=== PATIENT | female | born 1985 | race Caucasian/White ===

== ENCOUNTER 2025-05-03 09:37 | Outpatient (CLI) | payer OTHER, SELFPAY ==
--- NOTE | ~2025-05-03 | MR_ITS ---
MRI of the abdomen: Clinical indication: Abnormal findings on diagnostic imaging. Technique: Coronal SSFSE ARC, WATER:coronal LAVA-FLEX, Coronal 2D FIESTA FatSat, Axial SSFSE BH ARC, Axial 3D DualEcho BH, Axial SSFSE-IR, Axial DWI b=500, Axial 2D FIESTA FatSat, pre and dynamic postco ntrast Axial LAVA ARC, postcontrast Coronal In and Opposed phase LAVA FLEX. Following intravenous adm inistration of 20 cc MultiHance gadolinium, T1-weighted fat-sat imaging was performed in the axial an d coronal planes. Findings: Gallbladder absent. The common bile duct is unremarkable. No filling defects are seen withi n the CBD. No evidence of intrahepatic biliary ductal dilatation. The pancreatic duct is normal in si ze. Probable mild signal loss of the liver on out of phase images relative to in phase images, compatible diffuse fatty infiltration. Spleen, pancreas, left adrenal gland,, kidneys appear normal. Probable 1 1 mm right adrenal nodule with loss of signal on out of phase images relative to in phase images, com patible with benign adenoma. The aorta and the paraaortic regions appear normal. No abnormal postcontrast enhancement. Impression: Diffuse fatty infiltration of liver. 11 mm right adrenal adenoma. Reviewed, dictated and finalized at location M. Impression: Diffuse fatty infiltration of liver. 11 mm right adrenal adenoma.
--- OUTSIDE RECORDS SUMMARY | 2025-05-03 09:47 | XMS_ITS | Clinical Summary ---
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
--- OUTSIDE RECORDS SUMMARY | 2025-05-03 09:47 | XMS_ITS | Clinical Summary ---
Author Organization [facility] Address [address] [place] [address] Care Team Providers Care Student Loan Counselor Name Role Phone Kinjal Newby MD Primary Care Provider [phone] Sissy Berkowitz PA-C Unavailable [phone] [facility],non-owned Affiliates and Associated Physician Practices is amultiple site organization consisting of ambulatory clinics and hospital sitesin [place], [place], [place] and [place]. This disclosure is being madepursuant to the Care Everywhere program and may not contain all information available regarding this patient. Last updated 18.[facility] Allergies No known active allergies Medications * Be aware that medications may not be up to date on this document. Alwaysverify current medications with the patient. fluticasone propionate (FLONASE) 50 MCG/ACT nasal spray Constantine 1 Constantine into each nostril 2 times daily 1 Bottle 1 10/30/19 17 Active atorvastatin (Lipitor) 40 MG tablet Take 1 (one) tablet by mouth at bedtime Active vitamin D, ergocalciferol, (Drisdol) 1.25 MG (69360 UT) capsule Take 1 (one) capsule by mouth every 7 days Active Blood Glucose Monitoring Suppl (ONE TOUCH ULTRA 2) w/Device KIT USE DIRECTED TO TEST BLOOD SUGAR DAILY. 01/25/20 24 Active TRUEplus 5-Bevel Pen Bapchule 32G X 4 MM MISC as directed 11/02/19 24 Active blood glucose (ReliOn True Metrix Test Strips) test stripIndications :Type 2 diabetes mellitus without complication, without long-term current use of insulin ([facility]),Class 3 severe obesity due to excess calories without serious comorbidity with body mass index (BMI) of 50.0 to 59.9 in adult ([facility]) Use 1 (one) strip as directed 300 strip 3 11/25/19 Active lancetsIndicatio ns:Type 2 diabetes mellitus without complication, without long-term current use of insulin ([facility]),Class 3 severe obesity due to excess calories without serious comorbidity with body mass index (BMI) of 50.0 to 59.9 in adult ([facility]) Use 1 (one) Each once daily 100 Each 11/25/19 Active Additional Information Patient not taking.Reported on 04/14/2025 Semaglutide (2 MG/DOSE) 8 MG/3ML Subcutaneous Solution Pen-injector (Ozempic (2 MG/DOSE))Indicat ions:Type 2 diabetes mellitus without complication, without long-term current use of insulin ([facility]) Inject 2 (two) mg subcutaneously every 7 days (once a week) 9 mL 3 02/20/20 Active potassium citrate (Urocit K 10) 10 MEQ (1080 MG) tablet Take 1 (one) tablet by mouth 3 times daily with meals 180 tablet 11 09/30/20 24 025 Discontin ued(List Clean-Up) Active Problems Problem Noted Date Diagnosed Date Type 2 diabetes mellitus wit hout complication, without long-term current use of insulin 04/28/2024 Obesity due to excess calories 04/28/2024 Kidney stones 03/24/2024 Hydronephrosis with urinary obstruction due to renal calculus 12/08/2023 Encounters Date Type Department Care Team Description 04/14/2025 1:00 PM CDT Office Visit [facility] - Urology [address] [place] [address] [address] [place] [address] Fred Hagen MD Kidney stones (Primary Dx); Class 3 severe obesity due to excess calories without serious comorbidity with body mass index (BMI) of 50.0 to 59.9 in adult ([facility]) 04/14/2025 Travel 04/07/2025 3:07 PM CDT - 04/07/2025 11:59 PM CDT Hospital Encounter [facility] Imaging Services - Ultrasound [address] [place] [address] Fred Hagen MD Discharge Disposition: Home or Self Care 03/13/2025 Telephone [facility] - Endocrinology [address] [place] [address] Rebecca Camacho, RN Follow-up 03/12/2025 Orders Only [facility] - Endocrinology [address] [place] [address] Rebecca Camacho RN 02/19/2025 Orders Only [facility] - Endocrinology [address] [place] [phone] Anni Gallagher, DO Type 2 diabetes mellitus without complication, without long-term current use of insulin ([facility]) 02/02/2025 Refill [facility] - Endocrinology [address] [place] [phone] Chyna Brooks MD MEDICATION REFILL from Last 3 Months Immunizations Immunization Administration Dates Next Due INFLUENZA VACCINE, QUADR. (F LUZONE; FLULAVAL; FLUARIX; AFLURIA QUADRIVALENT; 6MO+), 0.5 ML (IIV4) 12/09/2023(Deferred: Patient Refused) Family History Medical History Relation Name Comments Cancer - Breast Maternal Grandmother Cancer - Breast Paternal Grandmother Relation Name Status Comments Maternal Grandmother Paternal Grandmother Social History Tobacco Use Types Packs/Day Years Used Date Smoking Tobacco: Every Day Cigarettes Smokeless Tobacco: Never Tobacco Cessation:Ready to Q uit: Not Asked; Counseling Given: Not Answered Alcohol Use Standard Drinks/Week Comments Never 0 (1 standard drink = 0.6 oz pur e alcohol) AUDIT-C Answer Date Recorded Q1: How often do you have a drink containing alcohol? Never 01/04/2024 Q2: How many drinks containi ng alcohol do you have on a typical day when you are drinking? Patient does not drink Q3: How often do you have si x or more drinks on one occasion? Never 01/04/2024 Overall Financial Resource Strain (CARDIA) Answe r Date Recorded How hard is it for you to pa y for the very basics like food, housing, medical care, and heating? Not hard at all 12/08/2023 PHQ-2 Answer Date Recorded Patient Health Questionnaire-2 Score 0 04/14/2025 [facility] Occupat ional Health - Occupational Stress Questionnaire Answer Date Recorded Do you feel stress - tense, restless, nervous, or anxious, or unable to sleep at night because your mind is troubled all the time - these days? Not at all 12/08/2023 Hunger Vital Sign Answer Date Recorded Within the past 12 months, y ou worried that your food would run out before you got the money to buy more. Never true 12/08/19 24 Within the past 12 months, t he food you bought just didn't last and you didn't have money to get more. Never true 12/08/2023 PRAPARE - Transportation Answer Date Re corded In the past 12 months, has l ack of transportation kept you from medical appointments or from getting medications? No 06/2024 In the past 12 months, has l ack of transportation kept you from meetings, work, or from getting things needed for daily living? No 12/08/2023 Housing Stability Vital Sign Answer Chris e Recorded In the last 12 months, was t here a time when you were not able to pay the mortgage or rent on time? No 12/08/2023 In the last 12 months, how many places have you lived? 1 12/08/2023 In the last 12 months, was t here a time when you did not have a steady place to sleep or slept in a penitentiary (including now)? 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 Gender Identity Female 03/04/2024 1:38 PM CDT Sexual Orientation Straight 03/04/2024 1: 38 PM CDT Last Filed Vital Signs Vital Sign Reading Time Taken Comments Blood Pressure 105/72 04/14/2025 1:11 PM CDT Pulse 97 04/14/2025 1:11 PM CDT Temperature 36.8 C (98.3 F) 04/14/2025 1:11 PM CDT Respiratory Rate 17 04/14/2025 1:11 PM CDT Oxygen Saturation 97% 04/14/2025 1:11 PM CDT Inhaled Oxygen Concentration - - Weight 120.2 kg (265 lb) 04/14/2025 1:11 PM CDT Height 154.9 cm (5' 1) 04/14/2025 1:11 PM CDT Body Mass Index 50.07 04/14/2025 1:11 PM CDT Plan of Treatment Upcoming Encounters Date Type Department Care Team (Late st Contact Info) Description 05/25/2025 10:40 AM CDT Office [facility] End[facility]inology [address] [place] [address], [place] [phone] Chyna Brooks MD [address] [place] [address] [place] [phone] 04/12/2026 2:30 PM CDT Office Visit [facility] - Urology [address] [facility] [address] [place] [address] Fred Hagen MD [address] [place] [address] Health Maintenance Due Date Last Done Comments HIV SCREENING 1999 HEPATITIS C SCREENING 11/09/2002 DTAP/TDAP/TD VACCINES (1 - Tdap) 2003 HEPATITIS B VACCINE (1 of 3 - 19+ 3-dose series) 2003 PNEUMOCOCCAL VACCINE (1 of 2 - PCV) 2003 HPV VACCINE (1 - 3-dose SCDM series) 2011 DIABETES RETINOPATHY SCREENING 04/28/2024 DIABETES-FOOT EXAM WITH MONOFILAMENT 04/28/2024 COVID-19 VACCINE ( - season) 2024 DIABETES - URINE PROTEIN SCREENING 10/01/2024 INFLUENZA VACCINE (#1) 2025 DIABETES-HGB A1C 09/15/2025 03/16/2025, , 04/28/2024 DIABETES-SERUM CREATININE 03/16/20262024, 03/17/2024, 12/09/2023, Additional history exists PAP SMEAR 05/16/2026 05/16/2023, 05/16/2023 MAMMOGRAM 12/29/2026 12/29/2024 ZOSTER VACCINE (1 of 2) 2034 DEPRESSION SCREENING Completed 04/14/2025 HIB VACCINE Aged Out No longer eligi ble based on patient's age to complete this topic MENINGOCOCCAL (Group B) VACCINE SHARED DECISION-MAKING Aged Out No longer eligible based on patient's age to complete this topic MENINGOCOCCAL GROUPS A/C/Y/W VACCINE Aged Out No longer eligible based on patient's age to complete this topic Medical Devices Implanted Type Area Vp Organizational Development Device Identifier Shelf Expiration Date Model / Serial / Lot Stent Uret 6fr 24cm Sft Tria Implanted:Qty: 1 on 12/09/2023 by Fred Hagen MD at [facility] [employer] [facility] 01/18/2026 [id number] / / [id number] Stent Uret 6fr 24cm Sft Tria Implanted:Qty: 1 on 12/09/2023 by Fred Hagen MD at [facility] [employer] [facility] 08/22/2026 [id number] / / [id number] Stent Uret 6fr 24cm Sft Tria Implanted:Qty: 2 on 01/04/2024 by Fred Hagen MD at [facility] [employer] 08/01/2026 [id number] / / [id number] Description:bilateral Procedures Procedure Name Priority Date/Time Associated Diagnosis Comments US RETROPERITONEAL COMPLETE Routine 04/07/2025 3:35 PM CDT Kidney stones LITHOLINK 24HR URINE PANEL QUANT (LC DIRECT SHIP) Routine 03/07/2025 9:00 AM CDT Kidney stones MAMMO BILAT SCREENING W LEONCIO Routine 12/29/2024 10:09 AM CDT Visit for screening mammogram HEMOGLOBIN A1C - POINT OF CARE (AMB) [facility] Routine 11/25/2024 11:07 AM 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 There is no evidence of echogenic renal stones, hydronephrosis or medical renal disease. 2.Bilateral ureteral jets are visible. > Interpreting Provider: Tommy Suarez MD on 04/07/2025 9:56 PM Narrative 04/07/2025 9:56 PM CDT PROCEDURE: US RETROPERITONEAL COMPLETE DATE/TIME OF EXAM: 04/07/2025 3:35 PM CLINICAL INFORMATION: None relevant/not provided if blank. Indication: N20.0: Kidney stones US RETROPERITONEAL COMPLETE, GRAYSCALE AND COLOR DOPPLER IMAGING. HISTORY: N20.0: Kidney stones COMPARISON: Renal ultrasound, 03/24/2024 FINDINGS: The kidneys are normal in size, contour, location and orientation. The renal cortices are normal in thickness and echotexture. There are no hydronephrosis, echogenic renal stones, cysts or solid masses in either kidney. The urinary bladder is almost empty with normal wall thickness, and without visible masses. The color Doppler images demonstrate the bilateral ureteral jets Specific measurements are as follows: Right kidney: 11.3 x 4.3 x 4.7 cm Right renal cortex: 14 mm Left kidney: 12.1 x 5.3 x 4.1 cm Left renal cortex: 13 mm Procedure Note Tommy Suarez MD - 04/07/2025 PROCEDURE: US RETROPERITONEAL COMPLETE DATE/TIME OF EXAM: 04/07/2025 3:35 PM CLINICAL INFORMATION: None relevant/not provided if blank. Indication: N20.0: Kidney stones US RETROPERITONEAL COMPLETE, GRAYSCALE AND COLOR DOPPLER IMAGING. HISTORY: N20.0: Kidney stones COMPARISON: Renal ultrasound, 03/24/2024 FINDINGS: The kidneys are normal in size, contour, location and orientation. The renal cortices are normal in thickness and echotexture. There are no hydronephrosis, echogenic renal stones, cysts or solid masses in either kidney. The urinary bladder is almost empty with normal wall thickness, andwithout visible masses. The color Doppler images demonstrate the bilateralureteral jets Specific measurements are as follows: Right kidney: 11.3 x 4.3 x 4.7 cm Right renal cortex: 14 mm Left kidney: 12.1 x 5.3 x 4.1 cm Left renal cortex: 13 mm IMPRESSION: 1.Within normal limits. There is no evidence of echogenic renal stones, hydronephrosis or medical renal disease. 2.Bilateral ureteral jets are visible. > Interpreting Provider: Tommy Suarez MD on 04/07/2025 9:56 PM us Fred Hagen MD US ORDERABLES Final Res ult * (ABNORMAL) LITHOLINK 24HR URINE PANEL QUANT (LC DIRECT SHIP) (03/07/2025 9:00 AM CDT) Cystine Urine Qualitative CANCELED [facility] INSURANCE BILL Comment: Test not performed. Previous test results on file. Result canceled by the ancillary. Volume Urine (Preservative) 1,680 500 - 4,000 mL/24 hr [facility] INSURANCE BILL Calcium Oxalate Saturation 5.34(L) 6.00 - 10.00 [facility] INSURANCE BILL Calcium Urine 116 <200 mg/24 hr [facility] INSURANCE BILL Oxalate Urine 38 20 - 40 mg/24 hr [facility] INSURANCE BILL Citrate Urine 707 >550 mg/24 hr [facility] INSURANCE BILL Calcium Phosphate Saturation 1.48 0.50 - 2.00 [facility] INSURANCE BILL pH Urine 24 Hour 6.501(H) 5.800 - 6.200 [facility] INSURANCE BILL Uric Acid Saturation 0.39 <1.00 [facility] INSURANCE BILL Uric Acid Urine 897(H) <750 mg/24 hr [facility] INSURANCE BILL Sodium Urine 173(H) 50 - 150 mmol/24 hr [facility] INSURANCE BILL Potassium 24 Hour Urine 58 20 - 100 mmol/24 hr [facility] INSURANCE BILL Magnesium Urine 45 30 - 120 mg/24 hr [facility] INSURANCE BILL Phosphorus Urine 1,085 600 - 1,200 mg/24 hr [facility] INSURANCE BILL Ammonium Urine 37 15 - 60 mmol/24 hr [facility] INSURANCE BILL Chloride mmol/24 Hour Urine 149 70 - 250 mmol/24 hr [facility] INSURANCE BILL Sulfate Urine 6(L) 20 - 80 meq/24 hr [facility] INSURANCE BILL Urea Nitrogen 24 Hour Urine 10.04 6.00 - 14.00 g/24 hr [facility] INSURANCE BILL Protein Catabolic Rate 0.7(L) 0.8 - 1.4 g/kg/24 hr [facility] INSURANCE BILL Creatinine Urine 1,587 Not Applic. mg/24 hr [facility] INSURANCE BILL Comment: Note the excessive variation in creatinine excretion, suggesting a discrepancy in the collection process. The urine creatinine result was verified by repeat analysis. Creatinine/Kg Body Weight 12.6 8.7 - 20.3 mg/24 hr/kg [facility] INSURANCE BILL Calcium/Kg Body Weight 0.9 <4.0 mg/24 hr/kg [facility] INSURANCE BILL Calcium/Creatini ne Ratio Urine 73 51 - 262 mg/g creat [facility] INSURANCE BILL Comment Litholink Note [facility] INSURANCE BILL Urine TIMED URINE SPECIMEN / Unknown 03/07/2025 9:00 AM CDT 03/09/2025 Narrative [facility] INSURANCE BILL - 03/13/2025 6:09 AM CDT Performed at: [address] [place] [id number] Gear Repairer: Nando Bowman PhD, Phone: [phone] us Fred Hagen MD LAB - URINE CHEMISTRY ORD ERABLES Edited Result - Final [facility] INSURANCE BILL [address] [place] [address] * Mammo Bilat Screening W Leoncio (12/29/2024 10:09 AM CDT) Anatomical Region Laterality Modality Breast Bilateral Mammography 12/29/2024 1:24 PM CDT Impressions 12/29/2024 1:27 PM CDT IMPRESSION: Prominent right axillary lymph node. Recommend diagnostic right axillary ultrasound. OVERALL FINAL ASSESSMENT: BI-RADS Category 0: Incomplete - Need Additional Imaging Evaluation. > Interpreting Provider: Pa Lewis MD on 12/29/2024 1:27 PM Narrative 12/29/2024 1:27 PM CDT EXAMINATION: BILATERAL DIGITAL SCREENING MAMMOGRAM AND BILATERAL BREAST TOMOSYNTHESIS HISTORY: Screening. COMPARISON: Baseline TECHNIQUE: BILATERAL digital breast tomosynthesis (DBT) and synthetic 2D digital mammogram images were obtained (bilateral craniocaudal and mediolateral oblique projections) including computer aided detection (CAD.) BREAST PARENCHYMAL COMPOSITION:Category B: There are scattered areas of fibroglandular density. MAMMOGRAM FINDINGS: There is no suspicious finding in either breast. There is a prominent right axillary lymph node. 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 73m2 [facility] BUN/Creatinine Ratio SEE NOTE: 6 - 22 (calc) [facility] Comment: Not Reported: BUN and Creatinine are within reference range. Sodium 140 135 - 146 mmol/L [facility] Potassium 3.9 3.5 - 5.3 mmol/L [facility] Chloride 107 98 - 110 mmol/L [facility] CO2 26 20 - 32 mmol/L [facility] Calcium 8.7 8.6 - 10.2 mg/dL [facility] Comment: REPORT COMMENT: FASTING:NO Test Performed at: [email or web address] [id number] [id number] KALIE SAEED MD 03/17/2024 3:01 PM CDT 03/17/2024 3:01 PM CDT us Fred Hagen MD LAB - CHEMISTRY ORDERABLE S Final Result [facility] [id number] [place] [address] from Last 3 Months or Most Recently Relevant to Health Maintenance Insurance [facility] [place] [address] Advance Directives * Full Code (Latest Code Status on File) Date Activated Date Inactivated Comments 12/08/2023 11:25 PM 12/11/2023 5:39 PM * Full Code Date Activated Date Inactivated Comments 12/08/2023 11:25 PM 12/08/2023 11:25 PM Care Teams Student Loan Counselor Relationship Specialty Start Date End Date Kinjal Newby MD [address] [place] [phone] PCP - General Emergency Medicine 12/08/23 Sissy Berkowitz PA-C [address] [place] [phone] Physician Dental Aide 12/08/23
== END 2025-05-03 09:38 | disposition home or self-care (01) ==
LOC: ANHIMG 09:45
PROVIDERS: PCP Emergency Medicine; Visit Provider Emergency Medicine
DX: R93.89 Abnormal findings on diagnostic imaging of other specified body structures (principal); D35.01 Benign neoplasm of right adrenal gland; K76.0 Fatty (change of) liver, not elsewhere classified
CPT/HCPCS: 74183; A9577

== ENCOUNTER 2025-05-18 10:58 | Outpatient (CLI) | payer OTHER, SELFPAY ==
--- NOTE | 2025-05-18 11:30 | ECG_ITS ---
Test Date: 2025-05-18 11:23:04 Measurements Intervals Jackson Rate: 80 P: 50 UT: 205 QRS: 35 QRSD: 94 T: 16 QT: 358 QTc: 413 Interpretive Statements SINUS RHYTHM LOW QRS VOLTAGE IN PRECORDIAL LEADS BORDERLINE T WAVE ABNORMALITY- ANTEROLAT/INF LEADS BASELINE ARTIFACT- I, II, III, AVR, AVL, AVF, V4-V6 BORDERLINE ECG No previous ECG available for comparison Electronically Signed On 05-18-2025 11:28:34 CDT by Javier العراقي D.O.
--- OUTSIDE RECORDS SUMMARY | 2025-05-18 12:17 | XMS_ITS | Clinical Summary ---
Author Organization [facility] Address [address] [place] [address] Care Team Providers Care Car Sales Consultant Name Role Phone Kinjal Newby MD Primary Care Provider [phone] Sissy Berkowitz PA-C Unavailable [phone] Source Comments [facility],non-owned Affiliates and Associated Physician Practices is amultiple site organization consisting of ambulatory clinics and hospital sitesin [place], [place], [place] and [place]. This disclosure is being madepursuant to the Care Everywhere program and may not contain all information available regarding this patient. Last updated 18.[facility] Allergies No known active allergies Medications * Be aware that medications may not be up to date on this document. Alwaysverify current medications with the patient. fluticasone propionate (FLONASE) 50 MCG/ACT nasal spray Wheeler 1 Wheeler into each nostril 2 times daily 1 Bottle 1 10/30/19 17 Active atorvastatin (Lipitor) 40 MG tablet Take 1 (one) tablet by mouth at bedtime Active vitamin D, ergocalciferol, (Drisdol) 1.25 MG (59539 UT) capsule Take 1 (one) capsule by mouth every 7 days Active Blood Glucose Monitoring Suppl (ONE TOUCH ULTRA 2) w/Device KIT USE DIRECTED TO TEST BLOOD SUGAR DAILY. 01/25/20 24 Active TRUEplus 5-Bevel [place] 32G X 4 MM MISC as directed 11/02/19 24 Active blood glucose (ReliOn True Metrix Test Strips) test stripIndications :Type 2 diabetes mellitus without complication, without long-term current use of insulin ([facility]),Class 3 severe obesity due to excess calories without serious comorbidity with body mass index (BMI) of 50.0 to 59.9 in adult ([facility]) Use 1 (one) strip as directed 300 strip 3 11/25/19 Active lancetsIndicatio ns:Type 2 diabetes mellitus without complication, without long-term current use of insulin ([facility]),Class 3 severe obesity due to excess calories without serious comorbidity with body mass index (BMI) of 50.0 to 59.9 in adult ([facility]) Use 1 (one) Each once daily 100 Each 11/25/19 Active Additional Information Patient not taking.Reported on 04/14/2025 Semaglutide (2 MG/DOSE) 8 MG/3ML Subcutaneous Solution Pen-injector (Ozempic (2 MG/DOSE))Indicat ions:Type 2 diabetes mellitus without complication, without long-term current use of insulin ([facility]) Inject 2 (two) mg subcutaneously every 7 days (once a week) 9 mL 3 02/20/20 Active Active Problems Problem Noted Date Diagnosed Date Type 2 diabetes mellitus wit hout complication, without long-term current use of insulin 04/28/2024 Obesity due to excess calories 04/28/2024 Kidney stones 03/24/2024 Hydronephrosis with urinary obstruction due to renal calculus 12/08/2023 Encounters Date Type Department Care Team Description 05/18/2025 Telephone [facility] - Endocrinology [address] [place] [phone] Chyna Brooks MD Question 04/14/2025 1:00 PM CDT Office Visit [facility] - Urology [address] [place] [address] Fred Hagen MD Kidney stones (Primary Dx); Class 3 severe obesity due to excess calories without serious comorbidity with body mass index (BMI) of 50.0 to 59.9 in adult ([facility]) 04/14/2025 Travel 04/07/2025 3:07 PM CDT - 04/07/2025 11:59 PM CDT Hospital Encounter [facility] - Ultrasound [address] [place] [address] Fred Hagen MD Discharge Disposition: Home or Self Care 03/13/2025 Telephone [facility] - Endocrinology [address] [place] [address] Rebecca Camacho, RN Follow-up 03/12/2025 Orders Only [facility] - Endocrinology [address] [place] [address] Rebecca Camacho, MICHAEL 02/19/2025 Orders Only [facility] - Endocrinology [address] [place] [address] Anni Gallagher, Type 2 diabetes mellitus without complication, without long-term current use of insulin (HCC) from Last 3 Months Immunizations Immunization Administration [...] Recorded Patient Health Questionnaire-2 Score 0 04/14/2025 [facility] - Occupational Stress [...] place to sleep or slept in a group home (including now)? No 12/08/2023 Comments No Sex and Gender Information Value Date Recorded Sex Assigned at Female 01/03/2024 2:25 PM CDT Legal Sex Female 7:34 PM QUICK SERVICE TECHNICIAN Gender Identity Female 03/04/2024 1:38 PM CDT [...] Description 05/25/2025 10:40 AM CDT Office Visit [facility] - Endocrinology [address] [place] [address], [place] [phone] Chyna Brooks MD [address] [place] [address] [address] [place] [phone] 04/12/2026 2:30 PM CDT Office Visit [facility] - Urology [address] [place] [address] Fred Hagen MD [address] [place] [address] Health Maintenance Due Date Last Done Comments HIV SCREENING 1999 HEPATITIS C SCREENING 11/09/2002 DTAP/TDAP/TD VACCINES (1 - Tdap) 2003 HEPATITIS B VACCINE (1 of 3 - 19+ 3-dose series) 2003 PNEUMOCOCCAL VACCINE (1 of 2 - PCV) 2003 HPV VACCINE (1 - 3-dose SCDM series) 2011 DIABETES RETINOPATHY SCREENING 04/28/2024 DIABETES-FOOT EXAM WITH MONOFILAMENT 04/28/2024 COVID-19 VACCINE (1 - season) 2024 DIABETES - URINE PROTEIN [...] this topic Medical Devices Implanted Type Area Commissary Manager Device Identifier Shelf Expiration Date Model / Serial / Lot Stent Uret 6fr 24cm Sft Tria Implanted:Qty: 1 on 12/09/2023 by Fred Hagen MD at [facility] [employer] [facility] 01/18/2026 [id number] / / [id number] Stent Uret 6fr 24cm Sft Tria Implanted:Qty: 1 on 12/09/2023 by Fred Hagen MD at [facility] [employer] [facility] 08/22/2026 [id number] / / [id number] Stent Uret 6fr 24cm Sft Tria Implanted:Qty: 2 on 01/04/2024 by Fred Hagen MD at [facility] [employer] [facility] 08/01/2026 [id number] / / [id number] Description:bilateral Procedures Procedure Name Priority Date/Time Associated Diagnosis Comments US RETROPERITONEAL COMPLETE Routine 04/07/2025 3:35 PM CDT Kidney stones LITHOLINK 24HR URINE PANEL QUANT (LC DIRECT SHIP) Routine 03/07/2025 9:00 AM CDT Kidney stones MAMMO BILAT SCREENING W LEONCIO Routine 12/29/2024 10:09 AM CDT Visit for screening mammogram HEMOGLOBIN A1C - POINT OF CARE (AMB) [facility] Routine 11/25/2024 11:07 AM QUICK SERVICE TECHNICIAN Type 2 diabetes mellitus without complication, without [...] - 03/13/2025 6:09 AM CDT Performed at: - [address] [id number] Molecular Biology Director: Nando Bowman PhD, Phone: [phone] us Fred Hagen MD LAB - URINE CHEMISTRY ORD ERABLES Edited Result - Final [facility] INSURANCE BILL [address] [place] [address] * Mammo Bilat Screening W Leonico (12/29/2024 10:09 AM CDT) Anatomical Region Laterality [...] is a prominent right axillary lymph node. Kinjal Newby MD MAMMO ORDERABLES Final Result * HEMOGLOBIN A1C - POINT OF CARE (AMB) [facility] (11/25/2024 11:07 AM QUICK SERVICE TECHNICIAN) Pathologist [facility] Hemoglobin A1c POCT 5.7 % DIANA [address] BLOOD SPECIMEN / Unknown 11/25/2024 11:07 AM QUICK SERVICE TECHNICIAN Chyna Brooks MD LAB - POINT OF CARE ORDERABLES Final Result [facility] [address], [facility] [address] [place] [address], [facility] [phone] * BASIC METABOLIC PANEL (CALCIUM TOTAL) (03/17/2024 3:01 PM CDT) Pathologist [facility] Glucose 116 65 - 139 mg/dL [facility] [...] Comment: REPORT COMMENT: FASTING:NO Test Performed at: [facility] [address] [place] [address] KALIE SAEED MD 03/17/2024 3:01 PM CDT 03/17/2024 3:01 PM CDT us Fred Hagen MD LAB - CHEMISTRY ORDERABLE S Final Result [facility] [address] [place] [address] from Last 3 Months or Most Recently Relevant to Health Maintenance Insurance Advance Directives * Full Code (Latest Code Status on File) Date Activated Date Inactivated Comments 12/08/2023 11:25 PM 12/11/2023 5:39 PM * Full Code Date Activated Date Inactivated Comments 12/08/2023 11:25 PM 12/08/2023 11:25 PM Care Teams Car Sales Consultant Relationship Specialty [place] [address] [place] [phone] PCP - General Emergency Medicine 12/08/23 Sissy Berkowitz PA-C [address] [place] [phone] Physician Grocery Store Bagger 12/08/23
--- OUTSIDE RECORDS SUMMARY | 2025-05-18 12:17 | XMS_ITS | Encounter Summary ---
Author Organization [facility] Address [address] [place] [address] Care Team Providers Care Police Patrol Lieutenant Name Role Phone Kinjal Newby MD Primary Care Provider [phone] Sissy Berkowitz PA-C Unavailable [phone] Reason for Visit * Reason Onset Date Comments Question 05/18/2025 Encounter Details Date Type Department Care Team (Late st Contact Info) Description 05/18/2025 Telephone [facility] - Endocrinology [address] [place] [address], [place] [address] Chyna Brooks MD [address] [place] [address] [place] [address] Question Social History Tobacco Use Types Packs/Day Years Used Date Smoking Tobacco: Every Day Cigarettes Smokeless Tobacco: Never Alcohol Use Standard Drinks/Week Comments Never 0 [...] Never 01/04/2024 Overall Financial Resource Strain (CARDIA) Yanet r Date Recorded How hard is it for you to pa y for the very basics like food, housing, medical care, and heating? Not hard at all 12/08/2023 PHQ-2 Answer Date Recorded Patient Health Questionnaire-2 Score 0 04/14/2025 [facility] of Occupat ional Health - Occupational Stress [...] place to sleep or slept in a longterm (including now)? No 12/08/2023 Comments No Sex and Gender Information Value Date Recorded Sex Assigned at Female 01/03/2024 2:25 PM CDT Legal Sex Female 7:34 PM GOLF COURSE RANGER Gender Identity Female 03/04/2024 1:38 PM CDT Sexual Orientation Straight 03/04/2024 1: 38 PM CDT documented as of this encounter Functional Status * Is person deaf or have serious hearing difficulty? Answer Date of Assessment Author No 12/08/2023 9:09 PM Zuhair Jasmine RN * Is person blind or have serious difficulty seeing? Answer Date of Assessment Author No 12/08/2023 9:09 PM Zuhair Jasmine RN * Does person have serious difficulty walking/climbing stairs? Answer Date of Assessment Author No 12/08/2023 9:09 PM Zuhair Jasmine RN * Does person have difficulty dressing/bathing? Answer Date of Assessment Author No 12/08/2023 9:09 PM Zuhair Jasmine RN * Does person have difficulty doing errands alone? Answer Date of Assessment Author No 12/08/2023 9:09 PM Zuhair Jasmine RN documented as of this encounter Mental Status * Does person have difficulty concentrating/remembering/making decisions? Answer Entry Date Author No 12/08/2023 9:09 PM Zuhair Jasmine RN documented in this encounter Miscellaneous Notes * Telephone Encounter - Marcella Burgos - 05/18/2025 10:16 AM CDT Pt returning call and would like a call back Thank you Pt call back # [phone] documented in this encounter Plan of Treatment Upcoming Encounters Date Type Department Care Team (Late st Contact Info) Description 05/25/2025 10:40 AM CDT Office Visit [facility] - Endocrinology [address] [place] [address], [place] [address] Chyna Brooks MD [address] [place] [address] [place] [phone] 04/12/2026 2:30 PM CDT Office Visit [facility] - Urology [address] [place] [address] [address] [place] [address] Fred Hagen MD [address] [facility] [address] [place] [address] documented as of this encounter Visit Diagnoses Not on filedocumented in this encounter Care Teams Police Patrol Lieutenant Relationship Specialty Start Date End Date Kinjal Newby MD [address] [place] [phone] PCP - General Emergency Medicine 12/08/23 Sissy Berkowitz PA-C [address] [place] [phone] Physician Auto Phone Installer 12/08/23 documented as of this encounter
--- OUTSIDE RECORDS SUMMARY | 2025-05-18 12:17 | XMS_ITS | Clinical Summary ---
Author Organization [facility] [address] Address [address] [place] [address] Care Team Providers Care Radio Mechanic Name Role Phone Unavailable Primary Care Provider Unavailabl e Social History Tobacco Use Types Packs/Day Years Used Date Smoking Tobacco: Never Assessed Comments Unknown Sex and Gender Information Value Date Recorded Sex Assigned at Not on file Legal Sex Female 10:19 AM IMPOSER Gender Identity Not on file Sexual Orientation [...]
[2025-05-18 13:45] LABS: Anion Gap 7 mmol/L (4-12); Blood Urea Nitrogen 10 mg/dL (7-17); Calcium 9.1 mg/dL (8.4-10.2); Carbon Dioxide 26 mmol/L (22-30); Chloride 105 mmol/L (98-107); Estimated Glomerular Filt Rate > 60; Glucose 82 mg/dL (65-110); Potassium 3.7 mmol/L (3.4-5.0); Sodium 138 mmol/L (137-145)
== END 2025-05-18 10:59 | disposition home or self-care (01) ==
LOC: ANHSURGERY 11:02
PROVIDERS: Anesthesiology; PCP Emergency Medicine; Visit Provider Obstetrics & Gynecology
DX: Z01.818 Encounter for other preprocedural examination (principal); R94.31 Abnormal electrocardiogram [ECG] [EKG]; N92.0 Excessive and frequent menstruation with regular cycle; E11.9 Type 2 diabetes mellitus without complications
CPT/HCPCS: 36415; 80048; 86850; 86900; 86901; 93005

== ENCOUNTER 2025-05-27 00:26 | Day surgery (SDC) | payer OTHER, SELFPAY ==
[2025-05-14 15:32] VITALS: BMI 49.8
--- NOTE | 2025-05-14 16:06 | PC.NURSE ---
Report to the Outpatient Waiting Room, entrance under the green pavilion located off [facility], at 0600 on 05-27-25. Planned Procedure Time: 0730.? Time changes happen often and if your time is changed the preop area will call you the afternoon before. - You and your visitor will be asked to self-screen and do not enter if you have any COVID symptoms. Please call surgeon if you need to reschedule. - A mask is optional within the hospital at this time. Patients may have clear liquids (water, carbonated beverages, clear teas, apple juice) until 3 hours prior to surgery with a maximum of 20 ounces. 0430 - No food from midnight until time of surgery and no smoking, or chewing tobacco (or any form of nicotine). No chewing gum, candy or mints. - Infants may have breast milk until 4 hours before surgery, formula 6 hours prior to surgery. - Children will be allowed to drink immediately following surgery.? If applicable, please bring a bottle or sippy cup to assist with drinking. Juice, water, soda, and popsicles are readily available.? For infants on formula, please bring formula the day of surgery.? Pacifiers are allowed. Take only the following medications with a SIP of water on the morning of surgery: None DO NOT STOP ANY OF YOUR OTHER PRESCRIPTION MEDICATIONS PRIOR TO SURGERY EXCEPT THE FOLLOWING Hold all vitamins and supplements for 3 days per anesthesiologist. Medications to discontinue per physician: Patient plans to ask Dr. Rivers at pre-op appointment on 05-21-25 about stopping Ozempic. Please no make-up, nail tuvaluan, hairspray, perfume, deodorant, or body powder the day of surgery.? No jewelry (including any body piercings) or valuables the day of surgery, leave them at home.? Please take a shower or bath the night before, or the morning of, surgery with an antibacterial soap.? Wear comfortable, loose fitting clothing.? Children are encouraged to wear pajamas. - Jewelry must be removed prior to entering the operating room.? Rings and piercings that are not removed may be cut off. - The hospital will not accept responsibility for valuables.? - Please leave all valuables, including medications, at home the day of surgery. If you are going home after surgery, a licensed cdl dedicated truck driver must drive you home.? - NO public transportation without another adult if you receive anesthesia. - We recommend that an adult stay with you for 24 hours following discharge. - We also recommend that you do not drive, make important decision, drink alcoholic beverages, or take any drugs that were not prescribed by your health care provider for at least 24 hours after your discharge time. For Pediatric surgeries, we recommend two adults accompany the child home. Follow any additional instructions given to you from your surgeon. Telephone instructions given to Janessa Emmanuel and asked if any additional questions and then verbalized understanding. Patient advised to call surgeon office or pre surgery nurse liaison [phone] if any additional questions.
[2025-05-27] VITALS (11 sets, daily range): BP systolic 109–136; BP diastolic 56–85; PULSE 68–91; RESP 12–24; TEMP 36.2–37.2; O2SAT 90–100
--- NOTE | ~2025-05-27 | CT_ITS ---
EXAMINATION: CT abdomen pelvis w con DATE: 05/28/2025 10:34 INDICATION: Check ureter TECHNIQUE: Computed tomography (CT) of the abdomen and pelvis was performed with 100 cc Omnipaque 350 intravenous contrast. The dose-length product was 4919.06 mGy-cm. Automated exposure control and iterative reconstruction technique were employed. COMPARISON: MR abdomen dated 05/03/2025. FINDINGS: There is abnormal soft tissue in the left pelvis intraperitoneal and extraperitoneal locations with areas of extraluminal soft tissue gas involving the pelvis and anterior abdominal wall. These findings are most likely postsurgical. Clinically correlate. There is intraluminal gas surrounding the bladder as well as within the bladder. The ureters appear to be normal in course and caliber and traverse the abnormal soft tissue in the pelvis the left ureter is largely opacified with contrast on multiple sequences. No hydronephrosis. Small fat-containing umbilical hernia. The liver, spleen, pancreas, adrenal glands and kidneys are unremarkable. No hydronephrosis. Status post cholecystectomy. Aorta within normal limits. No lymphadenopathy. IMPRESSION: 1. Complex fluid and soft tissue in the lower pelvis involving the intraperitoneal and extraperitoneal locations extending into the anterior abdominal wall and left inguinal canal. These findings may relate to recent surgery. Clinically correlate. The left ureter appears to be intact, although incompletely visualized with contrast through its pelvic extent although there is contrast on delayed sequence in the distal ureter. Reviewed, dictated and finalized at location O. IMPRESSION: 1. Complex fluid and soft tissue in the lower pelvis involving the intraperiton eal and extraperitoneal locations extending into the anterior abdominal wall an d left inguinal canal. These findings may relate to recent surgery. Clinically correlate. The left ureter appears to be intact, although incompletely visualiz ed with contrast through its pelvic extent although there is contrast on delaye d sequence in the distal ureter.
--- OUTSIDE RECORDS SUMMARY | 2025-05-27 00:31 | XMS_ITS | Clinical Summary ---
Author Organization [employer] [address] Address [address] [place] [address] Care Team Providers Care Rehab Manager Name Role Phone Unavailable Primary Care Provider Unavailabl e Social History Tobacco Use Types Packs/Day Years Used Date Smoking Tobacco: Never Assessed Comments Unknown Sex and Gender Information Value Date Recorded Sex Assigned at Not on file Legal Sex Female 10:19 AM CONSULTANT RN Gender Identity Not on file Sexual Orientation Not on file Plan of Treatment Health Maintenance Due Date Last Done Comments DTAP/TDAP/TD VACCINES (1 - Tdap) 2003 HEPATITIS B VACCINES (1 of 3 - 19+ 3-dose series) 11/01 HPV/Cotest (21-29) 2005 HPV VACCINES (1 - 3-dose SCDM series) 2011 CERVICAL CANCER SCREENING 2014 HPV/Cotest (30-65) 2014 PAP SMEAR 2014 BREAST CANCER SCREENING 2024 INFLUENZA VACCINE (#1) 2025 Insurance
[2025-05-27 06:37] LABS: BEDSIDEPREGUCG Negative (Negative)
[2025-05-27] MEDS: ACETAMINOPHEN 500 MG TABLET 1000 MG PO ×3 (06:52→18:41)
[2025-05-27] MEDS: LACTATED RINGERS 1,000 ML 30 ML IV CONT ×2 (06:52→10:17)
[2025-05-27] MEDS: KETOROLAC 15 MG/ML VIAL (*BKC) IV PUSH (06:52)
--- NOTE | 2025-05-27 07:16 | P.PNAN_ITS ---
Anes - Initial Pre Proc Eval Procedure: Operation Date: 05/27/25 07:30 Proposed Procedures p Robotic Assisted Hysterectomy with Bilateral Salpingectomy - Ron Rivers MD Date/Time: 05/27/25 07:16 Surgeon: Ron Rivers MD Pre Op Diagnosis: menorrhagia with regular cycle Patient Data Age: 39 Gender: F Height: 1.55 m Weight: 121.67 kg Last Vital Signs Temp 36.4 C 05/27/25 06:36 Pulse 87 05/27/25 06:36 Resp 18 05/27/25 06:36 BP 131/85 05/27/25 06:36 Pulse Ox 100 05/27/25 06:36 O2 Del Method Room Air 05/27/25 06:36 Allergies Allergy/AdvReac Type Severity Reaction Status Date / Time No Known Allergies Allergy Verified 05/27/25 06:16 Home Medications ?Medication ?Instructions ?Recorded ?Confirmed ?Type semaglutide 2 mg/dose (8 mg/3 mL) 2 mg subcut WEEKLY 0 05/14/25 05/27/25 History subcutaneous pen injector (Ozempic) Laboratory Tests 05/27/25 05/27/25 06:34 06:58 POC Capillary Glucose 109 H mg/dl (65-105) POC Urine HCG, Qual Negative (Negative) Patient hx anesthesia problems: post op nausea/vomiting Family hx anesthesia problems: none Results Review: All pre-operative results and documents have been reviewed as part of the pre- operative evaluation. [facility] Past Medical History Medical History (Updated 05/26/25 @ 14:20 by Del Morelos DO) Diabetes type 2, controlled Family History Family History Father Hypertension Mother Depression Grandparent Breast cancer Grandparent Breast cancer Social History Social History Smoking packs per day: 1 Smoking cigarettes per day: 20.0 Years smoked: 15 Smoking pack-years: 15.00 Smoking status: Current every day smoker Tobacco type: cigarettes Second hand tobacco smoke exposure: No Alcohol intake: never Substance use: never Substance use type: does not use Living arrangements: with family Spiritual care concerns: No Anes - Eval Final PreProcedure Day of Procedure 05/27/25 07:16 Patient weight: super morbidly obese Heart: regular rate and rhythm Lungs: clear to auscultation Airway: Mallampati scale class II Neurological: alert and oriented Last oral intake: >/= 8 hours ASA classification: III Emergent: no Anesthetic plan: proceed Anesthesia type and monitoring: general ETT and standard monitoring Results Review: All pre-operative results and documents have been reviewed as part of the pre- operative evaluation. Informed Consent: The patient's anesthetic plan and its attendant risks and benefits were discussed with the patient/family/POA. Questions were solicited and answers provided to the satisfaction of the patient/family/POA.
--- NOTE | 2025-05-27 07:20 | WPDHPUPDATE1 ---
History and Physical Update Update Date/Time: 05/27/25 07:20 History and Physical has been reviewed, including an updated exam of the patient. There are NO changes in the patient's condition. Risks, benefits, and alternatives have been discussed and questions answered. Patient agrees to proceed with procedure.
[2025-05-27] MEDS: SCOPOLAMINE 1 MG PATCH 1 PATCH TRANSDERM (07:24)
[2025-05-27] MEDS: ceFAZolin 3 GM/D5W 100 ML 100 ML IVPB (07:27)
--- NOTE | 2025-05-27 09:31 | S_PTH ---
PATIENT: Janessa Emmanuel LOC: [facility] U#:[id number] AGE/SX: 39/F ROOM: RE05/27/[address]: Ron Rivers MD : 1985 BED: DIS: 05/28/2025 SPEC #: [id number] RECD: 05/27/25 10:20 STATUS: FLEX REQ #: [id number] LYNDSEY: 05/27/25 09:[address]: Ron Rivers DEPT: [facility] Surgical RECD BY: Pat Zhang ENTERED: 05/27/25 10:20 SP TYPE: Surgical OTHR DR: Kinjal NewbyMD Tissues: A - Uterus Procedures: Hematoxylin and Eosin Stain Gross and Microscopic Level 5
[2025-05-27] MEDS: METHYLENE BLUE 0.5% INJ 10 ML AMPULE IV PUSH (09:45)
--- NOTE | 2025-05-27 10:38 | P.OP_ITS ---
Procedure Note - Detailed Date of Procedure 05/27/25 Pre-op Diagnosis menorrhagia with regular cycle Post-op Diagnosis Same Procedure Performed Robot assisted Total hysterectomy with bilateral salpingectomy. Surgeon Ron Rivers MD Anesthesia General Indications heavy vaginal bleeding, pelvic pain Findings normal-appearing uterus, ovaries, and left tube, right tube was partially resected. Some scarring over the posterior cul-de-sac peritoneum. Description of Procedure This patient was taken to the operating room. She was prepped and draped in the dorsal lithotomy position after induction of general anesthesia. The uterine manipulator and Tim cup were placed. This was done with a speculum and tenaculum. The speculum was placed. The cervix was grasped with a tenaculum. The stay sutures were placed at 3 and 9:00 a.m.. The stay sutures of 0 Vicryl were tied to the appropriately Size scope after it was slipped around the cervix.. The tip of the DOLORES manipulator was placed in the intr auterine cavity. The cup was slid into place around the cervix and into the fornices. It was locked into place. The sutures were then wrapped around the handle and tied under tension. A 8 mm skin incision was made in the left upper quadrant the abdomen. a 5 mm Visiport trocar was inserted into abdominal cavity and pneumoperitoneum was achieved. A 8 mm supraumbilical incision was made and a 8 mm trocar was inserted into the intrauterine cavity under direct visualization of the scope. an 8 mm incision was made in the right upper quadrant of the abdomen and an 8 mm robotic trocar was placed the inter uterine cavity under direct visualization the scope. An 11 mm trocar was inserted in the right upper quadrant of the abdomen rectal is a cystoscope after an incision was made there as well. The robot was docked. Electronic Orientation of the robot was performed. Bilateral ureteral lysis was performed. This was done from the pelvic brim down to the uterine artery. This was done with careful dissection using sharp and blunt dissection. The fallopian tubes were removed bilaterally. The mesosalpinx around the fallopian tubes were cauterized transected with LigaSure cautery. This was done in a bilateral fashion from the ovary to the uterine cornua. The fallopian tube was transected at the uterine cornu and amputated. The tube was taken out the left lower quadrant trocar site. In a stepwise fashion along the lateral aspects of the uterus the round ligament and broad ligaments were cauterized transected down to the level of the uterine arteries. A bladder flap was created in the bladder was moved distally to the end of the cervix and over the Tim cup. The bilateral uterine arteries were cauterized and transected. Colpotomy was then performed. In a circumferential fashion the vagina was transected using unipolar cautery. The incision was made down on the Tim cup. The uterus and cervix were taken out through the vagina. A pneumo occluder was placed in the vagina. The vaginal cuff was closed with a 0 V lock suture in a running fashion. The pelvis was irrigated with copious amounts antibiotic irrigation. The ureters were again examined and found to be intact and flowing freely under the uterine arteries into the bladder. The bladder was intact. It was examined directly. Cystoscopy was performed after administration of methylene blue. The cystoscope was inserted. Bladder was distended with fluid. The ureteric meatus was observed bilaterally. Blue fluid was seen to egress bilaterally. The bladder was drained and the cystoscope was withdrawn. The vagina was irrigated with Betadine solution after removal of the Pneumo occluder. the trocars were removed after the robot was undocked. The skin was closed with subacute or Dermabond. The patient was taken to recovery room. She was stable condition. Sponge lap and needle counts were correct x2. Estimated Blood Loss 125 Urine Output 800 Drains Yes Packing No Pathology Yes Complications No immediate complications Condition Stable Disposition Floor
[2025-05-27] MEDS: fentaNYL CITRATE INJ (*CRX) 100 MCG/2 ML VIAL 25 MCG IV PUSH ×4 (10:45→11:25)
[2025-05-27] MEDS: ONDANSETRON INJ 4 MG/2 ML VIAL IV PUSH (10:46)
--- NOTE | 2025-05-27 11:46 | OBPPTRN ---
Patient transferred to OB 2 room #289 via Bed. Support person- Aunt Elizabeth- present. Oriented to unit, room, information board, Surgery admission packet and security measures. Patient verbalizes understanding.
[2025-05-27] MEDS: DEXTROSE 5%/0.45% SOD CHL 1,000 ML 125 ML IV CONT (12:24)
[2025-05-27] MEDS: SIMETHICONE 80 MG TAB.CHEW PO ×2 (12:24→16:40)
[2025-05-27] MEDS: oxyCODONE HCL (*CRX) 5 MG TAB IR 10 MG PO (12:24)
[2025-05-27] MEDS: KETOROLAC 30 MG/ML VIAL (*BKC) IV PUSH ×2 (13:03→18:41)
[2025-05-27] MEDS: DOCUSATE SODIUM 100 MG CAPSULE PO (16:40)
[2025-05-27] MEDS: oxyCODONE HCL (*CRX) 5 MG TAB IR PO (18:42)
[2025-05-28] MEDS: KETOROLAC 30 MG/ML VIAL (*BKC) IV PUSH (00:31)
[2025-05-28] MEDS: ACETAMINOPHEN 500 MG TABLET 1000 MG PO ×3 (00:31→13:30)
[2025-05-28 01:40] VITALS: BP 121/64; PULSE 80; RESP 16; TEMP 37.2; O2SAT 96
[2025-05-28] MEDS: oxyCODONE HCL (*CRX) 5 MG TAB IR PO ×2 (01:44→09:11)
[2025-05-28 04:30] VITALS: BP 113/71; PULSE 79; RESP 16; TEMP 37.2; O2SAT 97
[2025-05-28] MEDS: SIMETHICONE 80 MG TAB.CHEW PO ×2 (07:36→12:05)
[2025-05-28] MEDS: IBUPROFEN 600 MG TABLET PO ×2 (07:36→13:30)
[2025-05-28] MEDS: DOCUSATE SODIUM 100 MG CAPSULE PO (07:36)
[2025-05-28 08:05] VITALS: BP 119/72; PULSE 66; RESP 16; TEMP 36.8; O2SAT 100
--- NOTE | 2025-05-28 08:55 | PM.GYNPNOP ---
FOREIGN LANGUAGE INTERPRETER - A/P Assessment and plan (1) Encounter for postoperative care: Code(s): Z48.89 - Encounter for other specified surgical aftercare Status: Acute Plan Concerned about right ureter, patient has had flank pain for months, has history of stones. Post hysterectomy cystoscopy the had slow egress of urine from the right ureter. To perform CT abdomen pelvis with contrast. Postoperative Procedures: Procedures Operation Date: 05/27/25 07:30 Actual Procedure Side Surgeon p Robotic Assisted Hysterectomy with Bilateral Salpingectomy, Lysis of Adhesions Bilateral Ron Rivers MD Postoperative day: 1 Postoperative status: doing well Postoperative plan: see orders Time Spent With Patient Time: Total time spent is greater than 50% in coordination of care (as documented) at patient's floor/unit and/or counseling patient: Time with patient: 15 - 25 minutes FOREIGN LANGUAGE INTERPRETER- PN:Timothy Post-Op Subjective Date/time seen: 05/28/25 08:55 Subjective: patient reports feeling better, patient has no complaints and pain is well controlled Exam Const: General: healthy appearing, comfortable and no acute distress Resp: Auscultation: clear to auscultation bilaterally, no rales, no rhonchi and no wheezes Cardio: Rate: regular rate Heart sounds: no click, no murmurs and no rubs GI: Inspection: non-distended Auscultation: normal bowel sounds Extrem: General: normal to inspection, no pedal edema and no calf tenderness FOREIGN LANGUAGE INTERPRETER - PN: Obj Data Vital Signs Vital Signs: Vital Signs - 24 hr 05/27/25 10:17 05/27/25 10:30 05/27/25 10:45 Temperature 97.1 F L Pulse Rate 91 89 89 Respiratory Rate 22 H 12 15 Blood Pressure 109/58 L 134/68 117/68 Pulse Oximetry 100 100 97 Oxygen Delivery Simple Face Mask Simple Face Mask Room Air Oxygen Flow Rate 8 8 05/27/25 11:00 05/27/25 11:15 05/27/25 11:30 Temperature 97.9 F Pulse Rate 89 86 85 Respiratory Rate 18 18 16 Blood Pressure 136/85 135/79 133/83 Pulse Oximetry 100 90 93 Oxygen Delivery Room Air Room Air Room Air Oxygen Flow Rate 05/27/25 11:55 05/27/25 15:10 05/27/25 19:00 Temperature 98.5 F 98.5 F 99.0 F Pulse Rate 83 84 68 Respiratory Rate 18 16 24 H Blood Pressure 126/67 123/73 113/56 L Pulse Oximetry 96 99 96 Oxygen Delivery Oxygen Flow Rate 05/27/25 19:30 05/28/25 01:40 05/28/25 04:30 Temperature 98.8 F 99.0 F 98.9 F Pulse Rate 74 80 79 Respiratory Rate 14 16 16 Blood Pressure 116/57 L 121/64 113/71 Pulse Oximetry 96 96 97 Oxygen Delivery Oxygen Flow Rate Intake/Output Intake/Output: Intake & Output 05/25/25 05/26/25 05/27/25 05/28/25 23:59 23:59 23:59 23:59 Intake Total 940 1000 Output Total 2100 Balance -1160 1000 Meds/Results Medications: Active Medications Generic Name Dose Route Start Last Admin Trade Name Freq PRN Reason Stop Dose Admin Acetaminophen 1,000 mg 05/27/25 12:00 05/28/25 07:35 Acetaminophen 500 Mg Tablet PO 1,000 mg Q6HR RIGO Administration Docusate Sodium 100 mg 05/27/25 17:00 05/28/25 07:36 Docusate Sodium 100 Mg Capsule PO 100 mg BID RIGO Administration Dextrose/Sodium Chloride 1,000 mls @ 125 mls/hr 05/27/25 11:42 05/27/25 12:24 Dextrose 5% Sodium Chloride 0.45% IV CONT 125 mls/hr .Q8H RIGO Administration Ibuprofen 600 mg 05/28/25 06:00 05/28/25 07:36 Ibuprofen 600 Mg Tablet PO 600 mg Q6HR RIGO Administration Naloxone HCl 0.1 mg 05/27/25 11:42 Naloxone Hcl 0.4 Mg/Ml Vial IV PUSH Q2M PRN Respiratory rate less than 10 Ondansetron HCl 4 mg 05/27/25 11:42 Ondansetron Inj 4 Mg/2 Ml Vial IV PUSH Q6H PRN Nausea And Vomiting Oxycodone HCl 5 mg 05/27/25 11:42 05/28/25 01:44 Oxycodone Hcl (*Crx) 5 Mg Tab Ir PO 5 mg Q4H PRN Administration Pain Rated 4-6 Oxycodone HCl 10 mg 05/27/25 11:42 05/27/25 12:24 Oxycodone Hcl (*Crx) 5 Mg Tab Ir PO 10 mg Q6H PRN Administration Pain Rated 7-10 Simethicone 80 mg 05/27/25 12:00 05/28/25 07:36 Simethicone 80 Mg Tab.Chew PO 80 mg TIDWM RIGO Administration Labs Labs: Laboratory Results - last 24 hr 05/27/25 05/28/25 10:23 04:52 POC Capillary Glucose 148 H 110 H
[2025-05-28 09:38] LABS: Blood Urea Nitrogen 10 mg/dL (7-17); Estimated CRCL calculation 111 ml/min; Estimated Glomerular Filt Rate > 60
--- NOTE | 2025-05-28 09:46 | WPDANESPN ---
Anes - Prog Note Post-Op Date/Time: 05/28/25 09:46 Cardiovascular status: normal Respiratory status: normal Airway patency: baseline Mental status: baseline Post-Op hydration status: normal Vital Signs: Last Vital Signs Temp 36.8 C 05/28/25 08:05 Pulse 66 05/28/25 08:05 Resp 16 05/28/25 08:05 BP 119/72 05/28/25 08:05 Pulse Ox 100 05/28/25 08:05 O2 Del Method Room Air 05/27/25 11:30 O2 Flow Rate 8 05/27/25 10:30 Pain Score (VAS): 1 I/O: Intake & Output 05/27/25 05/28/25 05/28/25 23:59 07:59 15:59 Intake Total 640 1000 Output Total 1150 Balance -510 1000 Laboratory Tests 05/28/25 09:07 05/27/25 05/28/25 05/28/25 10:23 04:52 09:07 BUN 10 Creatinine 0.71 Estim Creat Clear Calc 111 Estimated GFR > 60 POC Capillary Glucose 148 H 110 H Patient Feedback: Patient satisfied with anesthetic care.
== END 2025-05-28 15:44 | disposition home or self-care (01) ==
LOC: ANHSURGERY 06:01 → ANHOB2 11:52
PROVIDERS: PCP Emergency Medicine; Visit Provider Obstetrics & Gynecology
PROC: (CPT 58571; principal; 2025-05-27 07:30)
DX: N92.0 Excessive and frequent menstruation with regular cycle (principal); R10.2 Pelvic and perineal pain; E11.9 Type 2 diabetes mellitus without complications; F17.210 Nicotine dependence, cigarettes, uncomplicated; E66.01 Morbid (severe) obesity due to excess calories; Z68.43 Body mass index [BMI] 50.0-59.9, adult
CPT/HCPCS: 58571; S2900; 36415; 74177; 82565; 82948; 84520; 88307; 99199; A9270; J0690; J1100; J1885; J2003; J2250; J2405; J2704; J3010; J7030; J7120; Q9967; Q9968